=== PATIENT | female | born 1975 | race Caucasian/White ===

== ENCOUNTER 2016-12-09 20:49 | Emergency (ER) | payer BC ==
[~2016-12-09] VITALS: Ht 175.3 cm; Wt 91.3 kg
[~2016-12-09 20:49] MED LIST: CALCIUM + D3 E1 EACH PO; CLONAZEPAM0.5 MG PO; GEODON20 MG PO; HYDROCODON-ACE1 EAC7 PO; NICODERM CQ1 EACH TD; OMEPRAZOLE40 M1 PO; PERCOCET 5/31 TABLET PO; TYLENOL EXTRA500 MG PO; VITAMIN D400 UNIT PO; WELLBUTRIN XL150 MG PO; WOMEN'S DAILY1 EAC1 PO; ZANTAC150 MG PO; ZOLOFT50 MG PO; ZYRTEC10 M3 PO
[2016-12-10] MEDS ORDERED: NORCO 5/3251 TABLET PO (00:10)
[2016-12-10 00:40] VITALS: BP 112/72
== END 2016-12-10 00:41 | disposition home or self-care (01) ==
LOC: EME 20:49
DX: S70.01XA Contusion of right hip, initial encounter (principal); S09.90XA Unspecified injury of head, initial encounter; S50.311A Abrasion of right elbow, initial encounter; S80.211A Abrasion, right knee, initial encounter; W10.9XXA Fall (on) (from) unspecified stairs and steps, initial encounter; Y92.009 Unspecified place in unspecified non-institutional (private) residence as the place of occurrence of the external cause; M79.7 Fibromyalgia; K21.9 Gastro-esophageal reflux disease without esophagitis; Z98.84 Bariatric surgery status; F17.200 Nicotine dependence, unspecified, uncomplicated
CPT/HCPCS: 70450; 73502; 99281; 99284

== ENCOUNTER 2017-08-06 13:16 | Emergency (ER) | payer BC ==
[~2017-08-06] VITALS: Ht 175.3 cm; Wt 59.0 kg
[~2017-08-06 13:16] MED LIST changes: +CENTRUM WOMEN1 EACH PO; +NORCO 5/3251 TABLET PO; -WOMEN'S DAILY1 EAC1 PO
[2017-08-06 14:15] LABS: SERUM ETHYL ALCOHOL < 10 mg/dL
[2017-08-06 14:46] LABS: HEMATOCRIT 38.6 % (36.0-46.0); HEMOGLOBIN 13.2 G/DL (11.9-15.5); MCH 33.2 PG (29.0-34.0); MCHC 34.2 G/DL (30.0-36.0); PLATELET COUNT 195 K/uL (156-360); RBC DIS.WIDTH-CV 13.3 % (11.8-14.6); RBC DIS.WIDTH-SD 48.2 % (39-53); RED BLOOD COUNT 3.98 M/uL (3.80-5.20); WHITE BLOOD COUNT 6.9 K/uL (4.1-10.2)
[2017-08-06 14:47] LABS: CHLORIDE 106 mEq/L (99-109); POTASSIUM 4.1 mEq/L (3.7-5.4); SODIUM 139 mEq/L (136-147)
[2017-08-06 14:49] LABS: GLUCOSE 90 mg/dL (70-99)
[2017-08-06 14:53] LABS: CREATININE 0.8 mg/dL (0.6-1.3); GFR ESTIMATE (CALCULATED) > 59 mL/min/
[2017-08-06 14:54] LABS: UREA NITROGEN (BUN) 9 mg/dL (9-23)
[2017-08-06] MEDS ORDERED: FLEXERIL5 MG PO (15:08)
[2017-08-06] MEDS ORDERED: NICOTINE PATCH1 EAC2 TD (15:08)
[2017-08-06] MEDS ORDERED: VITAMIN B-12500 MC5 SL (15:10)
[2017-08-06] MEDS ORDERED: BENTYL10 MG PO (15:10)
[2017-08-06] MEDS ORDERED: PERCOCET 7.51 TABLET PO (15:11)
[2017-08-06] MEDS ORDERED: GEODON60 MG PO (15:11)
[2017-08-06] MEDS ORDERED: NEURONTIN100 MG PO (15:12)
[2017-08-06] MEDS ORDERED: ZOLOFT100 MG PO (15:12)
[2017-08-06 15:16] LABS: QUANTITATIVE HCG < 4.0 MIU/ML
[2017-08-06 15:31] LABS: AMPHETAMINE NEGATIVE (500 ng/mL); BARBITURATES NEGATIVE (200 ng/mL); BENZODIAZEPINES NEGATIVE (150 ng/mL); BUPRENORPHINE NEGATIVE (10 ng/mL); COCAINE NEGATIVE (150 ng/mL); METHADONE NEGATIVE (200 ng/mL); METHAMPHETAMINE NEGATIVE (500 ng/mL); OPIATES (MORPHINE) NEGATIVE (100 ng/mL); OXYCODONE PRESUMPTIVE POSITIVE (100 ng/mL); PHENCYCLIDINE NEGATIVE (25 ng/mL); PROPOXYPHENE NEGATIVE (300 ng/mL); THC CANNABINOIDS NEGATIVE (50 ng/mL); TRICYCLIC ANTIDEPRESSANTS NEGATIVE (300 ng/mL)
[2017-08-06 19:21] VITALS: BP 113/68
== END 2017-08-06 19:46 ==
LOC: EME 13:16
PROVIDERS: Emergency Medicine
DX: R45.851 Suicidal ideations (principal); F31.9 Bipolar disorder, unspecified; F17.200 Nicotine dependence, unspecified, uncomplicated
CPT/HCPCS: 80048; 84702; 84702 90; 85027; 90837; 99281; 99285; G0480

== ENCOUNTER 2017-11-11 19:16 | Inpatient (IN) | payer BC ==
[~2017-11-11] VITALS: Ht 172.7 cm; Wt 90.0 kg
[~2017-11-11 19:16] MED LIST changes: +ATARAX,VISTARIL25 MG PO; +BENTYL10 MG PO; -CLONAZEPAM0.5 MG PO; +FLEXERIL5 MG PO; -GEODON20 MG PO; +GEODON40 MG PO; +GEODON60 MG PO; +IMITREX100 MG PO; +KLONOPIN1 MG PO; +LAMICTAL100 MG PO; +NEURONTIN100 MG PO; +NICOTINE PATCH1 EAC2 TD; +PERCOCET 10/1 TABLET PO; +PERCOCET 7.51 TABLET PO; +VITAMIN B-12500 MC5 SL; +ZOLOFT100 MG PO
[2017-11-12 20:34] VITALS: BP 101/55
[2017-11-12 22:32] VITALS: BP 101/55
[2017-11-12 23:04] VITALS: BP 100/53
[2017-11-13 04:23] VITALS: BP 95/57
[2017-11-13 06:58] VITALS: BP 95/56
[2017-11-13 12:00] VITALS: BP 100/60
[2017-11-13] MEDS ORDERED: PERCOCET 10/1 TABLET PO (16:09)
[2017-11-13] MEDS ORDERED: OXYCONTIN10 MG PO (16:09)
== END 2017-11-13 17:27 | disposition home or self-care (01) | DRG 455 ==
LOC: ENRESERV 19:16 → 2SOUTH 11-12 10:26 → 3EAST 11-12 11:11 → 2SOUTH 11-12 11:11 → EDSTATUS 11-12 11:25 → 2SOUTH 11-12 11:26 → SDC 11-12 13:13 → ENRESERV 11-12 16:24 → 3EAST 11-12 19:26
DX: M43.17 Spondylolisthesis, lumbosacral region (principal); M54.16 Radiculopathy, lumbar region; M46.87 Other specified inflammatory spondylopathies, lumbosacral region; E66.01 Morbid (severe) obesity due to excess calories; F31.9 Bipolar disorder, unspecified; F60.3 Borderline personality disorder; F41.9 Anxiety disorder, unspecified; Z86.59 Personal history of other mental and behavioral disorders; Z68.30 Body mass index [BMI] 30.0-30.9, adult; Z98.84 Bariatric surgery status
CPT/HCPCS: 72100; 76000; 86850; 86900; 86901; C1821; J0131; J0330; J0690; J1100; J1170; J1580; J2250; J2310; J2405; J2930; J3010; J3370; J3480; Q0175; S0020